=== PATIENT | female | born 1930 | race Caucasian/White ===

== ENCOUNTER 2017-07-14 19:07 | Inpatient (IN) | payer OTHER, MEDICAID ==
[~2017-07-14] VITALS: Ht 165.1 cm; Wt 63.5 kg
[2017-07-14 19:12] VITALS: BP 82/43
[2017-07-14] MEDS ORDERED: VANCOMYCIN 1,000 MG in DEXTROSE 5% 250 ML IV ONE (20:20)
[2017-07-14] MEDS ORDERED: CEFEPIME 1,000 MG in DEXTROSE 5% 50 ML IV ONE (20:20)
[2017-07-14] MEDS ORDERED: NACL 0.9% 1,000 ML IV ONE (20:20)
[2017-07-14 20:22] LABS: HEMATOCRIT 33.7 % (36-48); HEMOGLOBIN 11.2 g/dL (12.0-16.0); MEAN CORPUSCULAR HEMOGLOBIN 31 pg (27-31); MEAN CORPUSCULAR HGB CONC 33 g/dL (33-37); MEAN CORPUSCULAR VOLUME 92 fL (80-94); PLATELET COUNT (AUTO) 200 K/uL (140-450); RED BLOOD CELL COUNT(AUTO) 3.65 MIL/uL (4.20-5.40); RED CELL DISTRIBUTION WIDTH 14.5 % (11.6-13.7); WHITE BLOOD COUNT (AUTO) 17.6 K/uL (4.8-10.8)
[2017-07-14 20:42] LABS: LYMPHOCYTES % (MANUAL) 15 % (20-46); MONOCYTES % (MANUAL) 6 % (5-12)
[2017-07-14 20:44] LABS: ANION GAP 11.2 (8-16); CARBON DIOXIDE 27.2 mmol/L (21-32); CHLORIDE 101 mmol/L (98-107); CREATININE 3.3 mg/dL (0.6-1.3); GLUCOSE 213 mg/dL (74-106); POTASSIUM 4.4 mmol/L (3.5-5.1); SODIUM SERUM 135 mmol/L (136-145); UREA NITROGEN, BLOOD 58 mg/dL (7-18)
[2017-07-14] MEDS ORDERED: CEFEPIME 1,000 MG VIAL ONE (20:45)
[2017-07-14] MEDS ORDERED: VANCOMYCIN 1,000 MG VIAL ONE (20:45)
[2017-07-14 20:47] LABS: PROTHROMBIN TIME 11.8 secs (10.8-13.4)
[2017-07-14 20:51] LABS: ASPARTATE AMINOTRANSFERASE 12 U/L (15-37); TOTAL BILIRUBIN 0.5 mg/dL (0.0-1.0)
[2017-07-14] MEDS ORDERED: FUROSEMIDE 40 MG/4 ML VIAL IVP SCH (22:05)
[2017-07-14] MEDS: NACL 0.9% 1,000 ML IV SCH (23:07)
[2017-07-14] MEDS ORDERED: hePARIN / DEXT 5% PREMIX 250 ML IV SCH (23:10)
[2017-07-14] MEDS ORDERED: ECOTRIN 81 MG TABEC PO SCH (23:10)
[2017-07-14] MEDS ORDERED: ACETAMINOPHEN 325 MG TAB PO PRN (23:10)
[2017-07-14] MEDS ORDERED: HEPARIN PER PHARMACY MC PRN (23:10)
[2017-07-14] MEDS ORDERED: ONDANSETRON 4 MG/2 ML VIAL IVP PRN (23:10)
[2017-07-14] MEDS ORDERED: ASPI81CT95 (23:38)
[2017-07-14] MEDS ORDERED: PRON (23:38)
[2017-07-14] MEDS ORDERED: DOCU-299 (23:38)
[2017-07-14] MEDS ORDERED: ARTOP (23:38)
[2017-07-14] MEDS ORDERED: VAS10 (23:38)
[2017-07-14] MEDS ORDERED: DICL1GEL19 TP (23:38)
[2017-07-14] MEDS ORDERED: ACET-2869 (23:38)
[2017-07-14] MEDS ORDERED: FERR-212 (23:39)
[2017-07-14] MEDS ORDERED: LANTUS SQ (23:39)
[2017-07-14] MEDS ORDERED: CALC-1018 (23:39)
[2017-07-14] MEDS ORDERED: CARV6.25 (23:39)
[2017-07-15] VITALS: BP 114/58
[2017-07-15] MEDS ORDERED: FUROSEMIDE 20 MG/2 ML VIAL IVP SCH (00:35)
[2017-07-15] MEDS ORDERED: LEVOFLOXACIN 750 MG/D5W PREMIX 150 ML IV SCH (01:00)
[2017-07-15 04:00] VITALS: BP 107/63
[2017-07-15] MEDS: CLINDAMYCIN 600 MG/4 ML VIAL ONE ×2 (04:37→04:39)
[2017-07-15] MEDS: CLINDAMYCIN 600 MG in DEXTROSE 5% 50 ML IV SCH ×3 (04:40→20:41)
[2017-07-15 05:01] LABS: FREE T4 (FREE THYROXINE) 1.15 ng/dL (0.76-1.46); MAGNESIUM 1.9 mg/dL (1.8-2.4); PHOSPHORUS 4.5 mg/dL (2.5-4.9); THYROID STIMULATING HORMONE 0.91 uIU/mL (0.34-3.74)
[2017-07-15 07:22] LABS: ANION GAP 12.2 (8-16); CHLORIDE 104 mmol/L (98-107); GLUCOSE 164 mg/dL (74-106); POTASSIUM 4.2 mmol/L (3.5-5.1); SODIUM SERUM 136 mmol/L (136-145); UREA NITROGEN, BLOOD 56 mg/dL (7-18)
[2017-07-15 07:32] LABS: CHOL/HDL RATIO 3.6 (1-4.5); MAGNESIUM 1.7 mg/dL (1.8-2.4); PHOSPHORUS 4.4 mg/dL (2.5-4.9)
[2017-07-15 08:00] VITALS: BP 97/53
[2017-07-15] MEDS ORDERED: ECOTRIN 81 MG TABEC PO SCH (09:00)
[2017-07-15] MEDS: POLYVINYL ALCOHOL 1.4% OP 15 ML SOL BOTH EYES SCH ×2 (09:00→20:42)
[2017-07-15] MEDS: DOCUSATE SODIUM 100 MG GELCAP PO SCH ×2 (09:20→20:42)
[2017-07-15] MEDS: ATORVASTATIN 20 MG TAB PO SCH (09:20)
[2017-07-15] MEDS: LACTOBACILLUS RHAMNOSUS GG 1 EACH CAP PO SCH (09:20)
[2017-07-15] MEDS: FERROUS SULFATE 325 MG TABEC PO SCH (09:21)
[2017-07-15] MEDS ORDERED: NITROGLYCERIN 0.4 MG TAB SL PRN (09:55)
[2017-07-15 09:57] LABS: HEMATOCRIT 32.4 % (36-48); HEMOGLOBIN 10.7 g/dL (12.0-16.0); MEAN CORPUSCULAR HEMOGLOBIN 31 pg (27-31); MEAN CORPUSCULAR HGB CONC 33 g/dL (33-37); MEAN CORPUSCULAR VOLUME 93 fL (80-94); PLATELET COUNT (AUTO) 182 K/uL (140-450); RED CELL DISTRIBUTION WIDTH 15.1 % (11.6-13.7); WHITE BLOOD COUNT (AUTO) 15.1 K/uL (4.8-10.8)
[2017-07-15 10:05] LABS: BASOPHILS % (MANUAL) 1 % (0-2); EOSINOPHILS % (MANUAL) 1 % (0-4); LYMPHOCYTES % (MANUAL) 6 % (20-46); MONOCYTES % (MANUAL) 4 % (5-12)
[2017-07-15 12:00] VITALS: BP 94/51
[2017-07-15 13:01] LABS: APPEARANCE,URINE HAZY (CLEAR); BILIRUBIN,URINE NEGATIVE (NEGATIVE); BLOOD, URINE 1+ (NEGATIVE); LEUKOCYTE ESTERASE ,URINE 1+ (NEGATIVE); PH,URINE 5.5 (5.0-9.0); UGLUCOSE NEGATIVE (NEGATIVE)
[2017-07-15 13:10] LABS: BARBITURATE, URINE NEG. ng/ml (NEG <=200); BENZODIAZEPINE, URINE NEG. ng/mL (NEG <=200); CANNABINOID, URINE NEG. ng/mL (NEG <=50); COCAINE, URINE NEG. ng/mL (NEG <=300); OPIATE, URINE NEG. ng/mL (NEG <=2000); PHENCYCLIDINE SCREEN,URINE NEG. ng/mL (NEG <=25)
[2017-07-15 13:19] LABS: COLOR,URINE DARK YELLOW (YELLOW)
[2017-07-15 13:20] LABS: NITRITE, URINE POSITIVE (NEGATIVE); RBC,URINE 0-5 (RARE) /HPF (0-5)
[2017-07-15 13:21] LABS: URINE AMORPHOUS URATE 1+ /HPF (None Seen)
[2017-07-15 16:00] VITALS: BP 109/51
[2017-07-15] MEDS: hePARIN / DEXT 5% PREMIX 250 ML IV SCH (17:34)
[2017-07-15 20:00] VITALS: BP 96/55
[2017-07-15] MEDS: NACL 0.9% 1,000 ML IV SCH (20:00)
[2017-07-15] MEDS: CARVEDILOL 6.25 MG TAB PO SCH (20:43)
[2017-07-15] MEDS ORDERED: ATORVASTATIN 20 MG TAB PO SCH (21:00)
[2017-07-16 00:20] VITALS: BP 109/51
[2017-07-16] MEDS: hePARIN / DEXT 5% PREMIX 250 ML IV SCH (02:04)
[2017-07-16 04:20] VITALS: BP 100/55
[2017-07-16] MEDS: CLINDAMYCIN 600 MG in DEXTROSE 5% 50 ML IV SCH ×3 (04:43→20:59)
[2017-07-16 07:34] LABS: HEMATOCRIT 28.1 % (36-48); HEMOGLOBIN 9.3 g/dL (12.0-16.0); MEAN CORPUSCULAR HEMOGLOBIN 31 pg (27-31); MEAN CORPUSCULAR HGB CONC 33 g/dL (33-37); MEAN CORPUSCULAR VOLUME 92 fL (80-94); PLATELET COUNT (AUTO) 166 K/uL (140-450); RED BLOOD CELL COUNT(AUTO) 3.06 MIL/uL (4.20-5.40); RED CELL DISTRIBUTION WIDTH 14.5 % (11.6-13.7); WHITE BLOOD COUNT (AUTO) 12.6 K/uL (4.8-10.8)
[2017-07-16 07:52] LABS: ANION GAP 15.2 (8-16); CHLORIDE 100 mmol/L (98-107); CREATININE 3.2 mg/dL (0.6-1.3); GLUCOSE 67 mg/dL (74-106); POTASSIUM 4.2 mmol/L (3.5-5.1); SODIUM SERUM 132 mmol/L (136-145)
[2017-07-16 07:59] LABS: MAGNESIUM 1.5 mg/dL (1.8-2.4); PHOSPHORUS 4.4 mg/dL (2.5-4.9); UREA NITROGEN, BLOOD 67 mg/dL (7-18)
[2017-07-16 08:00] VITALS: BP 94/46
[2017-07-16 08:04] LABS: EOSINOPHILS % (MANUAL) 1 % (0-4); LYMPHOCYTES % (MANUAL) 12 % (20-46); MONOCYTES % (MANUAL) 3 % (5-12)
[2017-07-16] MEDS: ASPIRIN 81 MG TAB.CHEW PO SCH (09:40)
[2017-07-16] MEDS: DOCUSATE SODIUM 100 MG GELCAP PO SCH ×2 (09:40→20:58)
[2017-07-16] MEDS: LACTOBACILLUS RHAMNOSUS GG 1 EACH CAP PO SCH (09:40)
[2017-07-16] MEDS: POLYVINYL ALCOHOL 1.4% OP 15 ML SOL BOTH EYES SCH ×2 (09:40→20:58)
[2017-07-16] MEDS: ATORVASTATIN 20 MG TAB PO SCH (09:41)
[2017-07-16] MEDS: FERROUS SULFATE 325 MG TABEC PO SCH (09:41)
[2017-07-16] MEDS: CARVEDILOL 6.25 MG TAB PO SCH ×2 (09:48→21:00)
[2017-07-16] MEDS ORDERED: MAG SULF 2000 MG/WATER PREMIX 100 ML IV SCH (10:00)
[2017-07-16 12:00] VITALS: BP 102/52
[2017-07-16 16:00] VITALS: BP 98/48
[2017-07-16] MEDS: BLOOD GLUCOSE MONITORING 1 DEV DEV FS SCH ×2 (17:16→21:01)
[2017-07-16] MEDS: NACL 0.9% 1,000 ML IV SCH (18:30)
[2017-07-16 20:00] VITALS: BP 93/47
[2017-07-16] MEDS: LEVOFLOXACIN 500 MG/D5W PREMIX 100 ML IV SCH (20:59)
[2017-07-16] MEDS: WARFARIN 5 MG TAB PO SCH (21:00)
[2017-07-16] MEDS ORDERED: WARFARIN 5 MG TAB PO SCH (21:00)
[2017-07-17 00:40] VITALS: BP 95/52
[2017-07-17 04:00] VITALS: BP 101/54
[2017-07-17] MEDS: CLINDAMYCIN 600 MG in DEXTROSE 5% 50 ML IV SCH ×3 (04:57→21:48)
[2017-07-17] MEDS: BLOOD GLUCOSE MONITORING 1 DEV DEV FS SCH ×4 (06:17→21:33)
[2017-07-17 08:00] VITALS: BP 103/52
[2017-07-17 08:11] LABS: HEMATOCRIT 27.1 % (36-48); MEAN CORPUSCULAR HEMOGLOBIN 31 pg (27-31); MEAN CORPUSCULAR HGB CONC 33 g/dL (33-37); MEAN CORPUSCULAR VOLUME 92 fL (80-94); PLATELET COUNT (AUTO) 177 K/uL (140-450); RED BLOOD CELL COUNT(AUTO) 2.93 MIL/uL (4.20-5.40); RED CELL DISTRIBUTION WIDTH 14.5 % (11.6-13.7)
[2017-07-17 08:38] LABS: ANION GAP 14.4 (8-16); CARBON DIOXIDE 19.9 mmol/L (21-32); CHLORIDE 98 mmol/L (98-107); CREATININE 3.2 mg/dL (0.6-1.3); GLUCOSE 113 mg/dL (74-106); POTASSIUM 4.3 mmol/L (3.5-5.1); SODIUM SERUM 128 mmol/L (136-145)
[2017-07-17 08:42] LABS: UREA NITROGEN, BLOOD 70 mg/dL (7-18)
[2017-07-17] MEDS: CARVEDILOL 6.25 MG TAB PO SCH ×3 (09:00→21:58)
[2017-07-17 09:06] LABS: LYMPHOCYTES % (MANUAL) 6 % (20-46); MONOCYTES % (MANUAL) 4 % (5-12)
[2017-07-17] MEDS: POLYVINYL ALCOHOL 1.4% OP 15 ML SOL BOTH EYES SCH ×2 (09:44→20:51)
[2017-07-17] MEDS: DOCUSATE SODIUM 100 MG GELCAP PO SCH ×2 (09:45→20:51)
[2017-07-17] MEDS: FERROUS SULFATE 325 MG TABEC PO SCH (09:45)
[2017-07-17] MEDS: ATORVASTATIN 20 MG TAB PO SCH (09:45)
[2017-07-17] MEDS: ASPIRIN 81 MG TAB.CHEW PO SCH (09:45)
[2017-07-17] MEDS: LACTOBACILLUS RHAMNOSUS GG 1 EACH CAP PO SCH (09:45)
[2017-07-17] MEDS: CALCIUM CARB/VIT-D 500 MG/200 IU 1 TAB PO SCH (09:45)
[2017-07-17] MEDS: NACL 0.9% 1,000 ML IV SCH (11:07)
[2017-07-17 12:00] VITALS: BP 91/49
[2017-07-17] MEDS ORDERED: DEXTROSE 50% 50 ML SYR IVP PRN (12:05)
[2017-07-17] MEDS: INSULIN LISPRO SLIDING SCALE 100 UNITS/ML VIAL SUBQ PRN ×2 (12:22→22:02)
[2017-07-17 13:10] LABS: PROTHROMBIN TIME 11.3 secs (10.8-13.4)
[2017-07-17 16:00] VITALS: BP 104/50
[2017-07-17] MEDS: WARFARIN 5 MG TAB PO SCH (16:54)
[2017-07-17 20:00] VITALS: BP 135/90
[2017-07-18] VITALS: BP 111/50
[2017-07-18 04:00] VITALS: BP 109/60
[2017-07-18] MEDS: CLINDAMYCIN 600 MG in DEXTROSE 5% 50 ML IV SCH ×3 (04:13→21:13)
[2017-07-18] MEDS: INSULIN LISPRO SLIDING SCALE 100 UNITS/ML VIAL SUBQ PRN ×4 (06:02→21:20)
[2017-07-18] MEDS: NACL 0.9% 1,000 ML IV SCH (06:43)
[2017-07-18] MEDS: BLOOD GLUCOSE MONITORING 1 DEV DEV FS SCH ×4 (06:43→21:19)
[2017-07-18 08:00] VITALS: BP 145/71
[2017-07-18 08:05] LABS: HEMATOCRIT 28.4 % (36-48); HEMOGLOBIN 9.8 g/dL (12.0-16.0); MEAN CORPUSCULAR HEMOGLOBIN 31 pg (27-31); MEAN CORPUSCULAR HGB CONC 34 g/dL (33-37); MEAN CORPUSCULAR VOLUME 90 fL (80-94); PLATELET COUNT (AUTO) 178 K/uL (140-450); RED BLOOD CELL COUNT(AUTO) 3.16 MIL/uL (4.20-5.40); RED CELL DISTRIBUTION WIDTH 14.5 % (11.6-13.7)
[2017-07-18 08:23] LABS: ANION GAP 16.5 (8-16); CHLORIDE 95 mmol/L (98-107); CREATININE 3.1 mg/dL (0.6-1.3); GLUCOSE 244 mg/dL (74-106); POTASSIUM 4.5 mmol/L (3.5-5.1); SODIUM SERUM 127 mmol/L (136-145)
[2017-07-18 08:31] LABS: PROTHROMBIN TIME 47.9 secs (10.8-13.4)
[2017-07-18 08:32] LABS: UREA NITROGEN, BLOOD 70 mg/dL (7-18)
[2017-07-18] MEDS: CARVEDILOL 6.25 MG TAB PO SCH ×2 (09:00→21:13)
[2017-07-18 09:25] LABS: LYMPHOCYTES % (MANUAL) 8 % (20-46); MONOCYTES % (MANUAL) 5 % (5-12)
[2017-07-18] MEDS: POLYVINYL ALCOHOL 1.4% OP 15 ML SOL BOTH EYES SCH ×2 (09:34→21:12)
[2017-07-18] MEDS: DOCUSATE SODIUM 100 MG GELCAP PO SCH ×2 (09:34→21:13)
[2017-07-18] MEDS: ASPIRIN 81 MG TAB.CHEW PO SCH (09:35)
[2017-07-18] MEDS: ATORVASTATIN 20 MG TAB PO SCH (09:35)
[2017-07-18] MEDS: LACTOBACILLUS RHAMNOSUS GG 1 EACH CAP PO SCH (09:35)
[2017-07-18] MEDS: CALCIUM CARB/VIT-D 500 MG/200 IU 1 TAB PO SCH (09:35)
[2017-07-18] MEDS: FERROUS SULFATE 325 MG TABEC PO SCH (09:35)
[2017-07-18 12:00] VITALS: BP 124/53
[2017-07-18 16:00] VITALS: BP 124/81
[2017-07-18 20:00] VITALS: BP 120/73
[2017-07-18] MEDS: LEVOFLOXACIN 500 MG/D5W PREMIX 100 ML IV SCH (21:51)
[2017-07-19] VITALS (8 sets, daily range): BP systolic 80–105; BP diastolic 44–65
[2017-07-19] MEDS: NACL 0.9% 1,000 ML IV SCH ×2 (04:05→22:51)
[2017-07-19] MEDS: CLINDAMYCIN 600 MG in DEXTROSE 5% 50 ML IV SCH ×2 (04:54→13:16)
[2017-07-19] MEDS: INSULIN LISPRO SLIDING SCALE 100 UNITS/ML VIAL SUBQ PRN ×3 (06:24→17:40)
[2017-07-19] MEDS: BLOOD GLUCOSE MONITORING 1 DEV DEV FS SCH ×4 (06:24→19:58)
[2017-07-19] MEDS: ATORVASTATIN 20 MG TAB PO SCH (08:36)
[2017-07-19] MEDS: FERROUS SULFATE 325 MG TABEC PO SCH (08:36)
[2017-07-19] MEDS: LACTOBACILLUS RHAMNOSUS GG 1 EACH CAP PO SCH (08:36)
[2017-07-19] MEDS: CALCIUM CARB/VIT-D 500 MG/200 IU 1 TAB PO SCH (08:37)
[2017-07-19] MEDS: DOCUSATE SODIUM 100 MG GELCAP PO SCH ×2 (08:37→19:58)
[2017-07-19] MEDS: ASPIRIN 81 MG TAB.CHEW PO SCH (08:37)
[2017-07-19] MEDS: CARVEDILOL 6.25 MG TAB PO SCH ×2 (08:37→19:57)
[2017-07-19] MEDS: POLYVINYL ALCOHOL 1.4% OP 15 ML SOL BOTH EYES SCH ×2 (08:49→19:57)
[2017-07-19] MEDS ORDERED: D50SYR IVP (11:43)
[2017-07-19] MEDS ORDERED: DOCU-299 PO (11:43)
[2017-07-19] MEDS ORDERED: LACT10CA PO (11:43)
[2017-07-19] MEDS ORDERED: CARV6.252 PO (11:43)
[2017-07-19] MEDS ORDERED: Warfarin Per Pharmacy MC (11:43)
[2017-07-19] MEDS ORDERED: LEVO750T2 PO (11:43)
[2017-07-19] MEDS ORDERED: HUMSLIDE SUBQ (11:43)
[2017-07-19] MEDS ORDERED: CLIN300C2 PO (11:43)
[2017-07-19] MEDS ORDERED: CALC-846 PO (11:43)
[2017-07-19 12:50] LABS: PROTHROMBIN TIME > 120.0 secs (10.8-13.4)
[2017-07-19] MEDS ORDERED: CALCIUM CARB/VIT-D 500 MG/200 IU 1 TAB PO SCH (13:25)
[2017-07-19] MEDS ORDERED: SODIUM CHLORIDE 1 GM TAB PO SCH (13:30)
[2017-07-19] MEDS ORDERED: PHYTONADIONE 10 MG/ML AMP SUBQ SCH (19:35)
[2017-07-19] MEDS: SODIUM CHLORIDE 1 GM TAB PO SCH (19:57)
[2017-07-19] MEDS ORDERED: NACL 0.9% 250 ML IV SCH ×2 (21:15→23:45)
[2017-07-19] MEDS: NACL 0.9% 250 ML IV SCH ×2 (22:30→23:49)
[2017-07-19] MEDS: ALBUTEROL SULFATE/IPRATROPIU 3 ML SOL IH PRN (23:13)
[2017-07-20 00:52] VITALS: BP 90/45
[2017-07-20 02:00] VITALS: BP 92/50
[2017-07-20 04:00] VITALS: BP 92/52
[2017-07-20] MEDS: BLOOD GLUCOSE MONITORING 1 DEV DEV FS SCH ×4 (05:45→20:36)
[2017-07-20 07:46] LABS: HEMOGLOBIN 8.6 g/dL (12.0-16.0); MEAN CORPUSCULAR HEMOGLOBIN 31 pg (27-31); MEAN CORPUSCULAR HGB CONC 33 g/dL (33-37); MEAN CORPUSCULAR VOLUME 92 fL (80-94); PLATELET COUNT (AUTO) 191 K/uL (140-450); RED BLOOD CELL COUNT(AUTO) 2.83 MIL/uL (4.20-5.40); RED CELL DISTRIBUTION WIDTH 15.3 % (11.6-13.7)
[2017-07-20 08:00] VITALS: BP 89/58
[2017-07-20 08:04] LABS: ANION GAP 15.9 (8-16); CARBON DIOXIDE 18.6 mmol/L (21-32); CHLORIDE 99 mmol/L (98-107); CREATININE 3.3 mg/dL (0.6-1.3); GLUCOSE 137 mg/dL (74-106); POTASSIUM 4.5 mmol/L (3.5-5.1); SODIUM SERUM 129 mmol/L (136-145)
[2017-07-20 08:11] LABS: UREA NITROGEN, BLOOD 77 mg/dL (7-18)
[2017-07-20 08:40] LABS: EOSINOPHILS % (MANUAL) 1 % (0-4); LYMPHOCYTES % (MANUAL) 6 % (20-46); MONOCYTES % (MANUAL) 5 % (5-12)
[2017-07-20] MEDS: CARVEDILOL 6.25 MG TAB PO SCH ×2 (09:00→20:37)
[2017-07-20] MEDS: SODIUM CHLORIDE 1 GM TAB PO SCH ×2 (09:40→20:36)
[2017-07-20] MEDS: DOCUSATE SODIUM 100 MG GELCAP PO SCH ×2 (09:41→20:36)
[2017-07-20] MEDS: FERROUS SULFATE 325 MG TABEC PO SCH (09:41)
[2017-07-20] MEDS: ASPIRIN 81 MG TAB.CHEW PO SCH (09:41)
[2017-07-20] MEDS: LACTOBACILLUS RHAMNOSUS GG 1 EACH CAP PO SCH (09:41)
[2017-07-20] MEDS: CALCIUM CARB/VIT-D 500 MG/200 IU 1 TAB PO SCH (09:41)
[2017-07-20] MEDS: POLYVINYL ALCOHOL 1.4% OP 15 ML SOL BOTH EYES SCH ×2 (09:49→20:37)
[2017-07-20] MEDS: ATORVASTATIN 20 MG TAB PO SCH (09:49)
[2017-07-20 12:00] VITALS: BP 102/52
[2017-07-20] MEDS: INSULIN LISPRO SLIDING SCALE 100 UNITS/ML VIAL SUBQ PRN ×3 (12:41→20:40)
[2017-07-20] MEDS ORDERED: PHYTONADIONE 10 MG/ML AMP SUBQ SCH (15:45)
[2017-07-20 16:00] VITALS: BP 95/46
[2017-07-20] MEDS: NACL 0.9% 1,000 ML IV SCH (18:53)
[2017-07-20 19:44] LABS: PROTHROMBIN TIME > 100.0 secs (10.8-13.4)
[2017-07-20] MEDS: ALBUTEROL SULFATE/IPRATROPIU 3 ML SOL IH PRN (21:10)
[2017-07-20] MEDS: LEVOFLOXACIN 500 MG/D5W PREMIX 100 ML IV SCH (21:47)
[2017-07-21] VITALS: BP 94/50
[2017-07-21] MEDS: BLOOD GLUCOSE MONITORING 1 DEV DEV FS SCH ×4 (06:52→20:36)
[2017-07-21 08:00] VITALS: BP 100/59
[2017-07-21 09:18] LABS: PROTHROMBIN TIME 22.8 secs (10.8-13.4)
[2017-07-21] MEDS: POLYVINYL ALCOHOL 1.4% OP 15 ML SOL BOTH EYES SCH ×2 (09:34→20:40)
[2017-07-21] MEDS: SODIUM CHLORIDE 1 GM TAB PO SCH ×2 (09:37→20:32)
[2017-07-21] MEDS: ATORVASTATIN 20 MG TAB PO SCH (09:38)
[2017-07-21] MEDS: FERROUS SULFATE 325 MG TABEC PO SCH (09:39)
[2017-07-21] MEDS: CALCIUM CARB/VIT-D 500 MG/200 IU 1 TAB PO SCH (09:39)
[2017-07-21] MEDS: LACTOBACILLUS RHAMNOSUS GG 1 EACH CAP PO SCH (09:39)
[2017-07-21] MEDS: ASPIRIN 81 MG TAB.CHEW PO SCH (09:42)
[2017-07-21] MEDS: CARVEDILOL 6.25 MG TAB PO SCH ×2 (09:42→20:32)
[2017-07-21] MEDS: DOCUSATE SODIUM 100 MG GELCAP PO SCH ×2 (09:43→20:32)
[2017-07-21 10:29] LABS: HEMATOCRIT 26.3 % (36-48); HEMOGLOBIN 8.5 g/dL (12.0-16.0); MEAN CORPUSCULAR HEMOGLOBIN 30 pg (27-31); MEAN CORPUSCULAR HGB CONC 32 g/dL (33-37); MEAN CORPUSCULAR VOLUME 92 fL (80-94); PLATELET COUNT (AUTO) 186 K/uL (140-450); RED BLOOD CELL COUNT(AUTO) 2.86 MIL/uL (4.20-5.40); RED CELL DISTRIBUTION WIDTH 15.3 % (11.6-13.7); WHITE BLOOD COUNT (AUTO) 13.1 K/uL (4.8-10.8)
[2017-07-21 11:01] LABS: ANION GAP 17.2 (8-16); CARBON DIOXIDE 17.4 mmol/L (21-32); CHLORIDE 101 mmol/L (98-107); CREATININE 3.6 mg/dL (0.6-1.3); GLUCOSE 150 mg/dL (74-106); POTASSIUM 4.6 mmol/L (3.5-5.1); SODIUM SERUM 131 mmol/L (136-145)
[2017-07-21 11:08] LABS: UREA NITROGEN, BLOOD 83 mg/dL (7-18)
[2017-07-21 11:13] LABS: BASOPHILS % (MANUAL) 0 % (0-2); EOSINOPHILS % (MANUAL) 2 % (0-4); LYMPHOCYTES % (MANUAL) 3 % (20-46); MONOCYTES % (MANUAL) 4 % (5-12)
[2017-07-21] MEDS: NACL 0.9% 1,000 ML IV SCH (15:07)
[2017-07-21] MEDS: ALBUTEROL SULFATE/IPRATROPIU 3 ML SOL IH PRN (15:28)
[2017-07-21 16:00] VITALS: BP 100/61
[2017-07-21] MEDS ORDERED: WARFARIN 5 MG TAB PO SCH (17:00)
== END 2017-07-22 00:25 | disposition home or self-care (01) | DRG 177 ==
LOC: MED 19:07 → MTU 22:17
PROVIDERS: ADMIT Student in an Organized Health Care Education/Training Program; ATTEND Student in an Organized Health Care Education/Training Program
DX: J69.0 Pneumonitis due to inhalation of food and vomit (principal); J96.01 Acute respiratory failure with hypoxia; I21.A1 Myocardial infarction type 2; N17.0 Acute kidney failure with tubular necrosis; E43 Unspecified severe protein-calorie malnutrition; D68.59 Other primary thrombophilia; G93.41 Metabolic encephalopathy; I50.43 Acute on chronic combined systolic (congestive) and diastolic (congestive) heart failure; E11.22 Type 2 diabetes mellitus with diabetic chronic kidney disease; I13.0 Hypertensive heart and chronic kidney disease with heart failure and stage 1 through stage 4 chronic kidney disease, or unspecified chronic kidney disease; E87.1 Hypo-osmolality and hyponatremia; I42.9 Cardiomyopathy, unspecified; N39.0 Urinary tract infection, site not specified; N18.4 Chronic kidney disease, stage 4 (severe); I48.91 Unspecified atrial fibrillation; D64.9 Anemia, unspecified; Z66 Do not resuscitate; E11.65 Type 2 diabetes mellitus with hyperglycemia; E11.51 Type 2 diabetes mellitus with diabetic peripheral angiopathy without gangrene; Z68.23 Body mass index [BMI] 23.0-23.9, adult; E83.42 Hypomagnesemia; T45.515A Adverse effect of anticoagulants, initial encounter; Y92.89 Other specified places as the place of occurrence of the external cause
CPT/HCPCS: 36415; 51702; 71010; 80048; 80053; 80305; 81001; 82550; 82948; 83036; 83605; 83690; 83735; 83880; 84100; 84439; 84443; 84484; 85025; 85610; 85730; 87040; 87081; 87086; 87804; 92610; 93005; 93925; 93970; 94640; 96365; 97110; 97140; 97530; 99285; J0692; J1644; J1815; J1940; J1956; J3370; J3430; J3475; J3490; J7030; J7060; J7620; Q0092